=== PATIENT | male | born 1965 | race Caucasian/White ===

== ENCOUNTER 2017-05-29 15:24 | Emergency (ER) | payer OTHER ==
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
--- NOTE | 2017-05-30 10:06 | CR ---
Cervical spine: AP, lateral, odontoid and swimmers views of the cervical spine were obtained. Comparison: No previous study. Ligamentum nuchal calcification is seen. Minimal disc space narrowing is noted at C4-C5, C5-C6 and C6-C7. Anterior osteophytes are noted within C4 through C6. Calcification seen within the anterior annulus at these same levels which is degenerative. Degenerative spurring is seen within the mid to upper thoracic spine. No subluxation or fracture is identified. Impression: 1. Mild degenerative change. Nothing acute is appreciated on cervical spine exam. Diagnostic code #2
== END 2017-05-29 16:40 | disposition home or self-care (01) ==
LOC: JD.ED 15:24
DX: S16.1XXA Strain of muscle, fascia and tendon at neck level, initial encounter (principal); E78.00 Pure hypercholesterolemia, unspecified; I10 Essential (primary) hypertension; F17.210 Nicotine dependence, cigarettes, uncomplicated; Z79.899 Other long term (current) drug therapy; V47.5XXA Car driver injured in collision with fixed or stationary object in traffic accident, initial encounter
CPT/HCPCS: 72040; 72040-26; 99283; 99284

== ENCOUNTER 2021-07-22 11:16 | Day surgery (SDC) | payer OTHER ==
[~2021-07-22 11:16] MED LIST: Lactated Ringers 1,000 ML IV SCH; Lidocaine 1%/Sod Bicarbonate in NS 8.4% 1 ML Syringe IDERM PRN; Sodium Chloride 0.9% 10 ML Syringe FLUSH PRN; Sodium Chloride 0.9% 10 ML Syringe FLUSH SCH
[2021-07-22] MEDS ORDERED: fentaNYL 100 MCG/2 ML SDV ONE (12:58)
[2021-07-22] MEDS ORDERED: Midazolam 1 MG/ML 2 ML SDV ONE (12:58)
[2021-07-22] MEDS ORDERED: Propofol 200 MG/20 ML SDV ONE ×4 (12:58→13:59)
[2021-07-22] MEDS ORDERED: Lidocaine 1% 4 ML ONE (13:13)
== END 2021-07-22 14:57 | disposition home or self-care (01) ==
LOC: JD.SDS 11:16
PROVIDERS: ATTEND Surgery
DX: Z12.11 Encounter for screening for malignant neoplasm of colon (principal); K64.9 Unspecified hemorrhoids; I10 Essential (primary) hypertension; E78.00 Pure hypercholesterolemia, unspecified; H54.7 Unspecified visual loss; E66.9 Obesity, unspecified; G47.33 Obstructive sleep apnea (adult) (pediatric); F17.210 Nicotine dependence, cigarettes, uncomplicated; J43.1 Panlobular emphysema; Z68.39 Body mass index [BMI] 39.0-39.9, adult; Z88.8 Allergy status to other drugs, medicaments and biological substances; Z90.89 Acquired absence of other organs; Z98.890 Other specified postprocedural states; Z86.718 Personal history of other venous thrombosis and embolism
CPT/HCPCS: J2250; J2704; J3010; J7120

== ENCOUNTER 2022-05-25 20:09 | Emergency (ER) | payer BC ==
[2022-05-25] MEDS ORDERED: Apixaban 5 MG Tab PO STA (20:55)
== END 2022-05-25 21:19 | disposition home or self-care (01) ==
LOC: JD.ED 20:09
DX: I26.99 Other pulmonary embolism without acute cor pulmonale (principal); I10 Essential (primary) hypertension; K21.9 Gastro-esophageal reflux disease without esophagitis; F17.290 Nicotine dependence, other tobacco product, uncomplicated; E66.9 Obesity, unspecified; Z68.41 Body mass index [BMI] 40.0-44.9, adult; Z88.8 Allergy status to other drugs, medicaments and biological substances; Z79.01 Long term (current) use of anticoagulants; Z79.899 Other long term (current) drug therapy
CPT/HCPCS: 99284; A9270